=== PATIENT | female | born 1990 | race Hispanic/Latino ===

== ENCOUNTER 2021-12-10 13:30 | Emergency (ER) | payer OTHER ==
[2021-12-10] MEDS ORDERED: fentaNYL 100 MCG/2 ML INJ IV ONE (14:27)
[2021-12-10] MEDS ORDERED: SODIUM CHLORIDE 0.9% 1000 ML 1,000 ML IV ONE (14:27)
--- NOTE | 2021-12-10 14:31 | Emergency Department Report ---
ED Abdominal Pain HPI - General Chief Complaint: Abdominal Pain Stated Complaint: right flank pain Time Seen by Provider: 12/10/21 14:21 Source: EMS Mode of arrival: Stretcher Limitations: No Limitations - History of Present Illness Initial Comments: Patient presents by ambulance secondary to abrupt onset of right abdominal pain and flank pain. She states that the pain is in the flank area. She had finished eating at [employer]. She ate shrimp. Within 15 minutes of eating she developed a sharp and stabbing pain in the right flank area. The pain radiates to the right lateral abdomen and to the right mid back. There is no prior history of pain of this nature. She states that she became violently ill and threw up. She has never had symptoms like this before. Patient states that she has had kidney stones before and this was worse than a kidney stone. She has never had vomiting with kidney stones. She denies abdominal pain. She has no fevers or chills per there is no cough congestion. EMS and ministered Zofran and she has not vomited since that time. She states that people have told her this could have been food poisoning, but she does not believe that there is food poisoning. She does report that her urine is really dark and that is unusual for her. Severity scale (0 -10): 0 - Related Data Previous Rx's Medication Instructions Recorded Last Taken Type HYDROcodone/APAP 5-325 [Watson 1 each PO Q6HR PRN #12 tablet 12/10/21 Unknown Rx 5/325] Ondansetron [Zofran ODT TAB] 8 mg PO Q8HR PRN #15 tab.rapdis 12/10/21 Unknown Rx Allergies Allergy/AdvReac Type Severity Reaction Status Date / Time Penicillins Allergy Hives Verified 12/10/21 13:35 amoxicillin AdvReac Hives Verified 12/10/21 13:35 ED Review of Systems ROS: Stated complaint: right flank pain Other details as noted in HPI Comment: All other systems reviewed and negative Constitutional: denies: fever Eyes: denies: eye pain ENT: denies: throat pain Respiratory: denies: cough Cardiovascular: denies: chest pain Endocrine: denies: unexplained weight loss Gastrointestinal: as per HPI Genitourinary: denies: dysuria Musculoskeletal: as per HPI Skin: denies: rash Neurological: denies: headache Hematological/Lymphatic: denies: easy bruising ED Past Medical Hx - Past Medical History Hx Hypertension: Yes Hx Kidney Stones: Yes Additional medical history: bipolar/depression - Family History Family history: hypertension - Medications Home Medications: Home Medications Medication Instructions Recorded Confirmed Last Taken Type HYDROcodone/APAP 5-325 [Watson 1 each PO Q6HR PRN #12 tablet 12/10/21 Unknown Rx 5/325] Ondansetron [Zofran ODT TAB] 8 mg PO Q8HR PRN #15 tab.rapdis 12/10/21 Unknown Rx ED Physical Exam - General Limitations: No Limitations, Other (Pulse ox noted and normal) General appearance: alert, in no apparent distress, obese, other (Moderate discomfort) - Head Head exam: Present: atraumatic, normocephalic - Eye Eye exam: Present: normal appearance, PERRL, EOMI. Absent: scleral icterus - ENT ENT exam: Present: normal orophraynx, normal external ear exam - Neck Neck exam: Present: normal inspection. Absent: meningismus - Respiratory Respiratory exam: Present: normal lung sounds bilaterally. Absent: respiratory distress - Cardiovascular Cardiovascular Exam: Present: regular rate, normal rhythm - GI/Abdominal GI/Abdominal exam: Present: soft. Absent: distended, tenderness, guarding, rebound - Extremities Exam Extremities exam: Present: normal capillary refill - Back Exam Back exam: Present: CVA tenderness (R). Absent: CVA tenderness (L) - Neurological Exam Neurological exam: Present: alert, oriented X3, CN II-XII intact, normal gait. Absent: motor sensory deficit - Psychiatric Psychiatric exam: Present: normal affect, normal mood - Skin Skin exam: Present: warm, dry ED Course Vital Signs 12/10/21 13:34 Temperature 98.2 F Pulse Rate 98 H Respiratory 16 Rate Blood Pressure 142/78 [Right] O2 Sat by Pulse 99 Oximetry - Reevaluation(s) Reevaluation #1: 12/10/21 14:30 IV labs ordered. Old records reviewed. Reevaluation #2: 12/10/21 17:23 CT was noted and the patient was discharged ED Medical Decision Making - Lab Data Result diagrams: 12/10/21 14:35 12/10/21 14:35 - Radiology Data Radiology results: report reviewed - Medical Decision Making Patient presented with abrupt onset of right flank pain. She had hematuria. She was found to have a 2 mm stone in the right proximal ureter. There was no evidence of pyuria. She did not have a urinary tract infection. She does not have a complete stroke obstruction. She did show some moderate hydro-, but there was no evidence that she had a complete obstruction. She did not have intractable pain or vomiting. She was treated symptomatically and discharged. Critical Care Time: No Critical care attestation.: If time is entered above; I have spent that time in minutes in the direct care of this critically ill patient, excluding procedure time. ED Disposition Clinical Impression: Acute right flank pain, Ureteral colic Disposition: HOME / SELF CARE / HOMELESS Is pt being admited?: No Condition: Stable Instructions: Abdominal Pain (ED), Low-Purine Eating Plan, Kidney Stones Additional Instructions: Drink plenty of water. Strain the urine. Follow-up with your family doctor and your urologist for recheck. Return for problems or concerns. Prescriptions: HYDROcodone/APAP 5-325 [Watson 5/325] 1 each PO Q6HR PRN #12 tablet PRN Reason: Pain Ondansetron [Zofran ODT TAB] 8 mg PO Q8HR PRN #15 tab.rapdis PRN Reason: Nausea
[2021-12-10 14:57] LABS: Hematocrit 40.9 % (30.3-42.9); Mean Corpuscular HGB Conc 34 % (30-34); Mean Corpuscular Volume 85 fl (79-97); Platelet Count 316 K/mm3 (140-440); Red Blood Count 4.82 M/mm3 (3.65-5.03); Red Cell Distribution Width 14.2 % (13.2-15.2)
[2021-12-10 15:15] LABS: Blood Urea Nitrogen 9 mg/dL (7-17); Calcium 9.2 mg/dL (8.4-10.2); Hemolysis Index 6
[2021-12-10 15:15] LABS: Bacteria,Urine 2+ /HPF (Negative); Bilirubin,Urine NEG (Negative); Blood,Urine MOD (Negative); Color,Urine Yellow (Yellow); Mucus,Urine 1+ /HPF; Urobilinogen,Urine < 2.0 mg/dL (<2.0)
[2021-12-10 15:28] LABS: BUN/Creatinine Ratio 13
--- NOTE | 2021-12-10 17:11 | Cat Scan Report ---
CT ABDOMEN AND PELVIS WITHOUT CONTRAST HISTORY: Right flank pain, hematuria. COMPARISON: None. TECHNIQUE: CT images of the abdomen and pelvis were obtained without administration of intravenous co ntrast. All CT scans at this location are performed using CT dose reduction for ALARA by means of au tomated exposure control. FINDINGS: Lungs/bones: Lung bases are clear. No acute osseous abnormality or significant degenerative change. Abdomen/pelvis: There is a 2 mm stone in the proximal right ureter with mild hydronephrosis. The kid neys otherwise appear unremarkable. The liver, gallbladder, spleen, pancreas, adrenals, and proximal GI tract appear unremarkable. The urinary bladder and reproductive organs are unremarkable with no pelvic free fluid. There is colo hans diverticulosis with no acute inflammatory change. The terminal ileum is normal. IMPRESSION: 1. 2 mm stone in the proximal right ureter with mild hydronephrosis. Signer Name: Homar Lopez MD Signed: 12/10/2021 5:06 PM Workstation Name: [id number]
[2021-12-10 18:27] VITALS: BP 140/90
== END 2021-12-10 18:27 | disposition home or self-care (01) ==
LOC: ED 13:30
DX: N23 Unspecified renal colic (principal); Z88.0 Allergy status to penicillin; I10 Essential (primary) hypertension
CPT/HCPCS: 36415; 74176; 80048; 81001; 84703; 85027; 96361; 96374; 99284; J3010; J7030; Q0162